=== PATIENT | female | born 1955 | race Caucasian/White ===

== ENCOUNTER 2022-03-07 09:10 | Outpatient (CLI) | payer OTHER, SELFPAY ==
[2022-03-07 13:39] LABS: Chloride* 102 mmol/L (96-114); Potassium* 4.5 mmol/L (3.6-5.1); Sodium* 138 mmol/L (135-149)
[2022-03-07 13:41] LABS: Cholesterol* 253 mg/dL (90-199); Creatinine* 0.7 mg/dL (0.5-1.5); Estimated Glomerular Filt Rate 95 ml/min
[2022-03-07 13:42] LABS: Blood Urea Nitrogen* 16 mg/dL (7-30); Calcium* 9.7 mg/dL (8.4-10.6); Carbon Dioxide* 30 mmol/L (20-32); Glucose* 99 mg/dL (60-115); Triglycerides* 148 mg/dL (40-149)
[2022-03-07 13:43] LABS: HDL Cholesterol* 76 mg/dL (>=50); LDL Cholesterol Calculated 147 mg/dL (<100)
== END 2022-03-07 09:11 | disposition home or self-care (01) ==
PROVIDERS: PCP Family Medicine; Visit Provider Family Medicine
DX: Z01.419 Encounter for gynecological examination (general) (routine) without abnormal findings (principal); I10 Essential (primary) hypertension; E78.5 Hyperlipidemia, unspecified
CPT/HCPCS: 80048; 80061

== ENCOUNTER 2022-05-05 13:18 | Outpatient (CLI) | payer MEDICAID, SELFPAY ==
--- NOTE | 2022-05-05 13:40 | CRLHL7_ITS ---
For Patients: As a result of the Century Cures Act, medical imaging exams and procedure reports are released immediately into your electronic medical record. You may view this report before your referring provider. If you have questions, please contact your health care provider. BILATERAL SCREENING MAMMOGRAM WITH COMPUTER-AIDED DETECTION AND TOMOSYNTHESIS TECHNIQUE: CC, MLO and Implant displaced views were obtained. These mammographic images have been obtained using full-field digital technique. These mammographic images were interpreted with the benefit of computer-aided detection. Breast Tomosynthesis was used in this interpretation. COMPARISON FILM: 02/17/21, 03/06/19, 09/02/18. FINDINGS: The breasts are heterogeneously dense, which may obscure small masses IMPRESSION: There is no radiographic evidence for malignancy. ASSESSMENT: BI-RADS Category 2: Benign RECOMMENDATION: Routine screening mammogram in 1 year. A lay language report of this examination will be provided to the patient. Candido Gonzalez M.D. Diagnostic Radiologist [email or web address] KIKE/Dictated by: Candido Gonzalez MD @ 05/08/2022 10:36:00 AM (Electronically Signed)
== END 2022-05-05 13:19 | disposition home or self-care (01) ==
LOC: MAMMO 13:19
PROVIDERS: PCP Family Medicine; Visit Provider Family Medicine
DX: Z12.31 Encounter for screening mammogram for malignant neoplasm of breast (principal); R92.2 Inconclusive mammogram
CPT/HCPCS: 77067

== ENCOUNTER 2022-08-04 10:41 | Outpatient (CLI) | payer OTHER, SELFPAY ==
--- NOTE | 2022-08-04 11:00 | CRLHL7_ITS ---
For Patients: As a result of the Century Cures Act, medical imaging exams and procedure reports are released immediately into your electronic medical record. You may view this report before your referring provider. If you have questions, please contact your health care provider. INDICATION: Right thyroid enlargement TECHNIQUE: Ultrasound thyroid with dumont-scale and color Doppler analysis. COMPARISON: No comparison FINDINGS: Heterogeneous thyroid right greater than left Right lobe: Measures 3.7 x 2.2 x 2.2 cm. Left lobe: Measures 4.1 x 1.0 x 1.1 cm. The isthmus is normal. Nodules: Right thyroid: 3.0 x 1.7 x 2.0 of mid thyroid level TR3. 1.9 x 1.0 x 1.3 cm lower. Level TR4. The nodules are mixed echogenicity. Wider than tall. Lobulated. No suspicious calcifications. Left thyroid: No focal nodules Lymph nodes: No pathologic enlargement. IMPRESSION: 1. Multinodular goiter in the right thyroid. 2. Two distinct nodules with a smaller and larger nodules level TR 3, and level TR 4 ACR TI-[email or web address] [email or web address] TR1: Benign No FNA TR2: Not Suspicious No FNA TR3: Mildly Suspicious FNA if greater than or equal to 2.5 cm Follow if greater than or equal to 1.5 cm TR4: Moderately Suspicious FNA if greater than or equal to 1.5 cm Follow if greater than or equal to 1 cm TR5: Highly Suspicious FNA if greater than or equal to 1 cm Follow if greater than or equal to 0.5 cm Dictated by Juan Pena MD @ 08/07/2022 10:44:01 AM (Electronically Signed)
== END 2022-08-04 10:42 | disposition home or self-care (01) ==
LOC: US 10:42
PROVIDERS: PCP Family Medicine; Visit Provider Family Medicine
DX: E04.9 Nontoxic goiter, unspecified (principal); E07.9 Disorder of thyroid, unspecified; E04.1 Nontoxic single thyroid nodule
CPT/HCPCS: 76536

== ENCOUNTER 2022-08-17 09:48 | Outpatient (CLI) | payer OTHER, SELFPAY ==
--- NOTE | 2022-08-17 10:15 | CRLHL7_ITS ---
For Patients: As a result of the Cures Act, medical imaging exams and procedure reports are released immediately into your electronic medical record. You may view this report before your referring provider. If you have questions, please contact your health care provider. INDICATION : Two nodules right thyroid lobe TECHNIQUE : Ultrasound-guided fine needle aspiration of thyroid nodule. Comparison : Ultrasound 08/31/2022 FINDINGS : PROCEDURE: After the informed consent and time-out, multiple fine needle aspirations were obtained from a TR 3 nodule within the anterior right thyroid lobe and a TR 4 nodule within the posterior right thyroid lobe. Fine needle performed. 25 gauge needles were used. Five passes made through each nodule. Lidocaine was used for local anesthesia. The preliminary cytology was adequate for interpretation. Real-time imaging was used for guidance and needle placement. Post imaging ultrasound demonstrates no immediate complication. IMPRESSION : Successful fine needle aspiration of 2 thyroid nodules within the right thyroid lobe. Dictated by Candido Gonzalez MD @ 08/17/2022 12:05:31 PM (Electronically Signed)
== END 2022-08-17 09:49 | disposition home or self-care (01) ==
PROVIDERS: PCP Family Medicine; Visit Provider Family Medicine
DX: E04.1 Nontoxic single thyroid nodule (principal)
CPT/HCPCS: 10005; 10006; 88173

== ENCOUNTER 2023-03-20 11:35 | Outpatient (CLI) | payer OTHER, SELFPAY | END 2023-03-20 11:36 | disposition home or self-care (01) | PROVIDERS: PCP Family Medicine; Visit Provider Family Medicine | DX: I10 Essential (primary) hypertension (principal); E78.5 Hyperlipidemia, unspecified | CPT/HCPCS: 80048; 80061 ==

== ENCOUNTER 2024-02-26 10:54 | Outpatient (CLI) | payer MEDICARE, SELFPAY | END 2024-02-26 10:55 | disposition home or self-care (01) | PROVIDERS: PCP Family Medicine; Visit Provider Family Medicine | DX: E78.2 Mixed hyperlipidemia (principal); I10 Essential (primary) hypertension; Z13.21 Encounter for screening for nutritional disorder | CPT/HCPCS: 80048; 80061; 82607 ==

== ENCOUNTER 2024-05-06 12:25 | Outpatient (CLI) | payer MEDICARE, SELFPAY ==
--- NOTE | 2024-05-06 13:00 | CRLHL7_ITS ---
For Patients: As a result of the Century Cures Act, medical imaging exams and procedure reports are released immediately into your electronic medical record. You may view this report before your referring provider. If you have questions, please contact your health care provider. BILATERAL SCREENING MAMMOGRAM WITH COMPUTER-AIDED DETECTION TECHNIQUE: CC, MLO and Implant displaced views were obtained. These mammographic images have been obtained using full-field digital technique. These mammographic images were interpreted with the benefit of computer-aided detection. COMPARISON FILM: 05/05/22, 02/17/21, 04/03/19. FINDINGS: The breasts are heterogeneously dense, which may obscure small masses. IMPRESSION: There is no radiographic evidence for malignancy. ASSESSMENT: BI-RADS Category 2: Benign RECOMMENDATION: Routine screening mammogram in 1 year. A lay language report of this examination will be provided to the patient. Candido Gonzalez M.D. Diagnostic Radiologist [email or web address] SP/Dictated by: Candido Gonzalez MD @ 05/07/2024 11:38:00 AM (Electronically Signed)
== END 2024-05-06 12:26 | disposition home or self-care (01) ==
PROVIDERS: PCP Family Medicine; Visit Provider Family Medicine
DX: Z12.31 Encounter for screening mammogram for malignant neoplasm of breast (principal); R92.333 Mammographic heterogeneous density, bilateral breasts; Z98.82 Breast implant status
CPT/HCPCS: 77063; 77067